=== PATIENT | female | born 2000 | race Caucasian/White ===

== ENCOUNTER 2019-10-09 07:04 | Emergency (ER) | payer SELFPAY ==
[2019-10-09] MEDS ORDERED: KETOROLAC TROMETHAMINE 0.45% 4 DROP/0.4 ML DROPERETTE OU ONE (08:15)
[2019-10-09 08:38] VITALS: BP 110/65
--- NOTE | 2019-10-09 15:26 | ER Document Report ---
Entered by SINDY RENNER SCRIBE 10/09/19 0814 Acting as scribe for:NORMA SWEENEY MD ED Eye Complaint - General Chief Complaint: Eye Problem Stated Complaint: EYE REDNESS,IRRITATION Time Seen by Provider: 10/09/19 08:00 Mode of Arrival: Ambulatory Information source: Patient Notes: This 19 year old female patient presents to the emergency department today with complaints of bilateral eye pain for the last x2 days. Patient states two days ago her eyes began to burn and then yesterday she was "barely able to open them" because they were crusted shut. Patient states she has tried to use OTC visine eye drops which made her eyes burn worse. Patient complains of clear watery discharge as well. TRAVEL OUTSIDE OF THE [place] IN LAST 30 DAYS: No - Related Data Allergies/Adverse Reactions: No Known Allergies Allergy (Unverified 10/09/19 07:36) Past Medical History - General Information source: Patient - Social History Smoking Status: Never Smoker Cigarette use (# per day): No Chew tobacco use (# tins/day): No Frequency of alcohol use: None Drug Abuse: None Lives with: Family Family History: Reviewed & Not Pertinent Patient has suicidal ideation: No Patient has homicidal ideation: No Pulmonary Medical History: Reports: Hx Asthma Surgical Hx: Negative Review of Systems - Review of Systems Constitutional: denies: Fever EENT: See HPI, Eye pain, Eye discharge Cardiovascular: No symptoms reported Respiratory: No symptoms reported Gastrointestinal: No symptoms reported Genitourinary: No symptoms reported Female Genitourinary: No symptoms reported Musculoskeletal: No symptoms reported Skin: No symptoms reported Hematologic/Lymphatic: No symptoms reported Neurological/Psychological: No symptoms reported -: Yes All other systems reviewed and negative Physical Exam - Vital signs Vitals: Temp Pulse Resp BP Pulse Ox 97.4 F 87 16 106/66 99 10/09/19 07:09 10/09/19 07:09 10/09/19 07:09 10/09/19 07:09 10/09/19 07:09 - Notes Notes: Physical Exam: General: Alert, appears well. HEENT: Normocephalic. Atraumatic. PERRLA. Extraocular movements intact. Or opharynx clear. Scleral and conjunctival injection bilaterally. Clear watery discharge. There is swollen eyelid edema bilaterally. Palpable preauricular nodes bilaterally, left > right. Neck: Supple. Respiratory: No respiratory distress. Abdominal: Normal Inspection. No distension. Extremities: Moves all four extremities. Neurological: Normal cognition. AAOx4. Normal speech. Psychological: Normal affect. Normal Mood. Skin: Warm. Dry. Normal color. - HEENT Visual acuity- Right eye: 20/30 Visual acuity- Left eye: 20/30 Visual acuity- Both eyes: 20/30 Corrective lenses worn: No Course - Re-evaluation Re-evalutation: 10/09/19 08:30 A small Acular dispense dropper unit was used to apply 2 drops into each eye, demonstrating to the patient how to use the eyedrops. She also received a presc ription for the Acular drops. - Vital Signs Vital signs: Temp Pulse Resp BP Pulse Ox 97.6 F 88 16 110/65 100 10/09/19 08:36 10/09/19 08:36 10/09/19 08:36 10/09/19 08:36 10/09/19 08:36 Discharge - Discharge Clinical Impression: Acute viral conjunctivitis of both eyes Condition: Stable Disposition: HOME, SELF-CARE Additional Instructions: Viral Conjunctivitis: You have an infection in your eye, commonly known as "pink eye." Conjunctivitis causes redness, mild discomfort, itching, and mattering on the eyelids. It is very contagious, so you must be careful to wash your hands after touching your face so you don't pass the infection on to others. Conjunctivitis is caused by both viruses and bacteria. It usually responds quickly to treatment with antibiotic drops. These should be placed in the eye as prescribed (usually every three to four hours while you're awake). If you wear contact lenses, don't put them in your eyes until the infection is cleared and you are no longer using the drops (unless your doctor advises you otherwise). Should you develop increasing eye pain, severe swelling, decreased vision, or fail to improve as expected, please return for re-examination. Put the Acular eyedrops--1 drop into each eye every 4 hours. Avoid wind and sun. Wash your hands frequently, and avoid any contact with others as this is a highly infectious type of conjunctivitis. Do not use make-up, specifically eyeliner's and any brushes or make-up that you have used should be discarded. Cool compresses on the eyes will make him feel better. Ibuprofen 600 mg every 8 hours may help with the discomfort, particularly if it is causing a headache. Follow-up with a local atmospheric physics professor or eye doctor if not improving. RETURN TO THE EMERGENCY ROOM IF ANY NEW OR WORSENING SYMPTOMS. Prescriptions: Ketorolac Tromethamine [Acular] 1 drop OU Q4 PRN #5 ml PRN Reason: For Pain Forms: Return to Work I personally performed the services described in the documentation, reviewed and edited the documentation which was dictated to the scribe in my presence, and it accurately records my words and actions.
== END 2019-10-09 08:36 | disposition home or self-care (01) ==
LOC: ER 07:04
DX: B30.9 Viral conjunctivitis, unspecified (principal); H57.13 Ocular pain, bilateral
CPT/HCPCS: 99282